=== PATIENT | female | born 1960 | race Caucasian/White ===

== ENCOUNTER 2018-01-27 19:31 | Emergency (ER) | payer BC ==
[2018-01-27 19:53] VITALS: BP 134/84
[2018-01-27] MEDS ORDERED: Amoxicillin/Clavulanate TAB* 875 MG PO ONE (20:21)
--- NOTE | 2018-01-27 20:23 | UC ---
Throat Pain/Nasal Avel HPI - HPI Summary HPI Summary: Patient is a 57-year-old female that has had progressively worsening right sided facial pain and swelling 1 week. She was seen by her primary couple days ago and started on amoxicillin. She is also told to suck on sour drops. She states that when she eats her pain markedly increases as does her swelling. Swelling has progressively worsened especially over the past 24 hours. She has no fever. - History of Current Complaint Chief Complaint: UCGeneralIllness Stated Complaint: SWOLLEN GLANDS Time Seen by Provider: 01/27/18 20:10 Hx Obtained From: Patient Onset/Duration: Sudden Onset, Lasting Days Severity: Mild Pain Intensity: 3 Pain Scale Used: 0-10 Numeric Associated Signs & Symptoms: Positive: Negative - Allergies/Home Medications Allergies/Adverse Reactions: Allergies Allergy/AdvReac Type Severity Reaction Status Date / Time nabumetone [From Relafen] Allergy Altered Verified 01/27/18 19:48 Mental Status Home Medications: Home Medications Levothyroxine TAB* [Synthroid TAB*] 100 mcg PO DAILY 01/27/18 [History Confirmed 01/27/18] Neomyc/Polym/HC 1% OTIC SUSP* [Cortisporin Otic Susp 1%*] 4 drop RIGHT EAR QID 01/27/18 [History Confirmed 01/27/18] Simvastatin [Zocor] 20 mg PO DAILY 01/27/18 [History Confirmed 01/27/18] PMH/Surg Hx/FS Hx/Imm Hx Previously Healthy: Yes Endocrine History: Dyslipidemia - Surgical History Surgical History: None - Family History Known Family History: Positive: Hypertension - Social History Alcohol Use: None Substance Use Type: None Smoking Status (MU): Never Smoked Tobacco Review of Systems All Other Systems Reviewed And Are Negative: Yes Constitutional: Positive: Negative Skin: Positive: Negative Eyes: Positive: Negative ENT: Positive: Negative Respiratory: Positive: Negative Cardiovascular: Positive: Negative Gastrointestinal: Positive: Negative Genitourinary: Positive: Negative Motor: Positive: Negative Neurovascular: Positive: Negative Musculoskeletal: Positive: Negative Neurological: Positive: Negative Psychological: Positive: Negative Physical Exam Triage Information Reviewed: Yes Appearance: Well-Appearing, No Pain Distress, Well-Nourished Vital Signs: Initial Vital Signs Temp 98.4 F 01/27/18 19:46 Pulse 77 01/27/18 19:46 Resp 16 01/27/18 19:46 BP 134/84 01/27/18 19:46 Pulse Ox 100 01/27/18 19:46 Vital Signs Reviewed: Yes Eyes: Positive: Conjunctiva Clear ENT: Positive: Hearing grossly normal, TMs normal, Uvula midline, Other - swollen right parotid gland and R submandibular gland. Negative: Pharyngeal erythema, Nasal congestion, Nasal drainage, TM bulging, TM dull, TM red, Tonsillar swelling, Tonsillar exudate, Trismus, Muffled voice, Hoarse voice, Dental tenderness, Sinus tenderness Dental Exam: Normal Neck: Positive: Supple, Nontender, No Lymphadenopathy Respiratory: Positive: Lungs clear, Normal breath sounds, No respiratory distress, No accessory muscle use Cardiovascular: Positive: RRR, No Murmur Musculoskeletal: Positive: ROM Intact, No Edema Neurological: Positive: Alert Psychological Exam: Normal Skin Exam: Normal Throat Pain/Nasal Course/Dx - Course Assessment/Plan: advised pt to contact MD in AM...may need ENT referral - Differential Dx/Diagnosis Provider Diagnosis: Sialadenitis Discharge - Sign-Out/Discharge Documenting (check all that apply): Patient Departure All imaging exams completed and their final reports reviewed: No Studies - Discharge Plan Condition: Stable Disposition: HOME Prescriptions: Amoxicillin/Clavulanate TAB* [Augmentin TAB 875*] 875 mg PO BID #10 tab Patient Education Materials: Sialoadenitis (ED) Referrals: Manpreet Ramirez MD [Primary Care Provider] - 1 Day Additional Instructions: start augmentin heat contact your MD in AM You may need referral to an ENT - Billing Disposition and Condition Condition: STABLE Disposition: Home
== END 2018-01-27 20:30 | disposition home or self-care (01) ==
LOC: UCCORT 19:31
DX: K11.20 Sialoadenitis, unspecified (principal); E78.5 Hyperlipidemia, unspecified; Z88.8 Allergy status to other drugs, medicaments and biological substances
CPT/HCPCS: 99202; A9270-GY; G0463